=== PATIENT | female | born 1930 | race Caucasian/White ===

== ENCOUNTER → 2016-09-20 | Outpatient (CLI) | payer MEDICARE, OTHER ==
[~2016-09-20] MED LIST: ACETAMINOPHEN1 EACH PO; CARTIA XT240 MG PO; COD LIVER OIL1 EACH PO; COUMADIN **IA1 MG PO; CRESTOR40 MG PO; FOSAMAX70 MG PO; GARLIC1 EAC1 PO; LASIX20 MG PO; MULTI FOR HER1 EAC2 PO; NORCO 5-325 MG1 TAB PO; PROTONIX40 MG PO; REMERON15 MG PO; SEROQUEL25 MG PO; TOPROL XL25 MG PO; TUMS200 MG PO; VITAMIN B-121000 MCG PO; VITAMIN C500 M1 PO; VITAMIN D-32000 UNI1 PO
[2016-09-20 14:06] LABS: ANION GAP 11.6 (10.0-19.0); CALCIUM 9.7 mg/dL (8.5-10.5); CREATININE 1.7 mg/dL (0.5-1.1); POTASSIUM 3.6 mMol/L (3.7-5.1); TOTAL PROTEIN 7.3 g/dL (6.0-8.4)
[2016-09-20 14:07] LABS: TOTAL BILIRUBIN 0.8 mg/dL (0.0-1.5)
== END | disposition disaster alternative care site (69) ==
LOC: LNHI 13:48
PROVIDERS: Internal Medicine Interventional Cardiology
DX: I50.32 Chronic diastolic (congestive) heart failure (principal); I48.92 Unspecified atrial flutter

== ENCOUNTER → 2016-12-10 | Outpatient (CLI) | payer MEDICARE, OTHER | END | disposition disaster alternative care site (69) | LOC: LGSMG 10:49 | DX: I50.30 Unspecified diastolic (congestive) heart failure (principal) ==

== ENCOUNTER → 2017-01-07 | Outpatient (CLI) | payer MEDICARE, OTHER | END | disposition disaster alternative care site (69) | LOC: GBCOE 13:26 | DX: M81.0 Age-related osteoporosis without current pathological fracture (principal) ==

== ENCOUNTER 2017-02-09 14:37 | Emergency (ER) | payer MEDICARE, OTHER ==
--- NOTE | ~2017-02-09 | ER ---
PATIENT'S NAME: YARELY CALLAWAY [facility] AGE: 86 Y [address] ROOM: [place] [address] LOCATION: [facility] ADMIT DATE: 02/09/2017 ER/Outpatient Report DISCHARGE DATE: 02/09/2017 FAMILY PHYSICIAN: Anny Burgos MD ATTENDING PHYSICIAN: Joe Nicholson Time of Arrival: 1440 hours. Time of Evaluation/Exam: 1440 hours. CHIEF COMPLAINT: Chest pain and abdominal pain. HISTORY OF PRESENT ILLNESS: The patient woke up at 1030 hours this morning. Did not really feel the best. She did go to lay back down, and then about 1230 hours, she still was not feeling well. States she has some generalized chest discomfort, has been nauseated, and vomited upon arrival to the ER. She denies feeling shortness of breath or diaphoretic. Upon arrival to the ER, she states she is not having any chest pain anymore. It was earlier today. CURRENT MEDICATIONS: On her chart and reviewed by me. ALLERGIES: ON HER CHART AND REVIEWED BY ME. PAST MEDICAL HISTORY: 1. Atrial fibrillation. 2. Mitral valve insufficiency. 3. Dementia. 4. Congestive heart failure. 5. Chronic kidney disease. 6. Pulmonary hypertension. PAST SURGICAL HISTORY: Pacemaker. SOCIAL HISTORY: She presents to the ER accompanied by her daughter whom she lives with. Denies use of tobacco, drugs, or alcohol. REVIEW OF SYSTEMS: Negative other than those mentioned in the HPI. PHYSICAL EXAMINATION: PATIENT'S NAME: YARELY CALLAWAY [facility] AGE: 86 Y [address] ROOM: [place] [id number] LOCATION: [facility] ADMIT DATE: 02/09/2017 ER/Outpatient Report DISCHARGE DATE: 02/09/2017 FAMILY PHYSICIAN: Anny Burgos MD ATTENDING PHYSICIAN: Joe Nicholson VITAL SIGNS: She weighed 74 kg. Blood pressure is 132/79; pulse is 70; respirations 20; temperature of 96.3, tympanic; and O2 saturation is 93% on room air. GENERAL APPEARANCE: She is awake, alert, and oriented x4. SKIN: Pale, pink, warm, and dry. RESPIRATORY: Respirations are even and nonlabored. Lung sounds are clear throughout. ABDOMEN: Soft, nondistended. Bowel sounds are present. No peripheral edema is noted. EXTREMITIES: She moves all peripheral extremities equally. LABORATORY DATA AND IMAGING STUDIES: EKG was completed. It shows a sinus rhythm. Paced rhythm. It was reviewed with Dr. Nicholson. He did compare it to other EKGs, does not show big changes. CBC shows a white count of 12.1. Prothrombin time is 23.7 with an INR of 2.24. She is on warfarin. Chemistry panel: Sodium is 141, potassium is 4.3, and chloride is 110. Her glucose is 143. BUN is 18, creatinine 1.4. EGFR is 34. Cardiac enzymes are negative. Lactate was 2.4. Her GGT was 55. Procalcitonin was negative. EMERGENCY DEPARTMENT COURSE: The patient was started on fluids of normal saline 500 mL at a wide-open rate. A catheterized UA was obtained. Leukocytes are negative, but nitrites are positive. Micro shows negative epithelials, 0-2 whites, and many bacteria. She was monitored. She was given Zofran 4 mg IV. No more episodes of vomiting occurred during her stay. Vital signs remained stable. Her O2 sats remained above 90% in the entire time. Blood pressure was stable. Heart rate remained at 70, paced rhythm the entire time. She states she was feeling better. Dr. Nicholson did examine the patient also and notes were reviewed with him. Did do a 2-hour EKG and cardiac enzymes. Cardiac enzymes continued to be negative. EKG was unchanged. The patient was given Rocephin 1 g IV. IMPRESSION: Urinary tract infection. PLAN: Home, rest, fluids, and Tylenol as needed for discomfort. Prescription was given for Macrobid. She is to follow up with her primary provider in the next 2 to 3 days, if symptoms warrant. She verbalized understanding. MARINA SOLITARIO APRN FOR JOE NICHOLSON MD PATIENT'S NAME: YARELY CALLAWAY [facility] AGE: 86 Y [address] ROOM: [place] [address] LOCATION: [facility] ADMIT DATE: 02/09/2017 ER/Outpatient Report DISCHARGE DATE: 02/09/2017 FAMILY PHYSICIAN: Anny Burgos MD ATTENDING PHYSICIAN: Joe Nicholson/arnaldol /[id number] d: 02/09/17 2203 t: 02/18/17 0632, OUTPATIENT REPORT
[2017-02-09 15:22] LABS: BASOPHIL % 0.3 %; EOSINOPHIL # 0.1 K/uL (0.0-0.5); EOSINOPHIL % 0.5 %; HEMATOCRIT 41.2 % (30.0-46.0); HEMOGLOBIN 13.2 g/dL (10.0-15.0); IMMATURE GRANULOCYTE % 0.3 %; LYMPHOCYTE # 1.1 K/uL (0.8-4.0); LYMPHOCYTE % 8.8 %; MCV 96.7 fl (83.0-98.0); MONOCYTE # 0.5 K/uL (0.0-1.0); MONOCYTE % 4.2 %; MPV 9.7 fl (9.4-12.4); NEUTROPHIL # (ANC) 10.4 K/uL (1.8-7.8); NEUTROPHIL % 85.9 %; NRBC % 0 /100WBC (0-0.00); PLATELET COUNT 194 K/uL (150-450); RBC 4.26 M/uL (3.00-5.00); RDW-CV 13.9 % (11.9-14.6); WBC 12.1 K/uL (4.0-11.0)
[2017-02-09 15:29] LABS: INR - (THERAPEUTIC) 2.24 (0.92-1.07); PROTIME 23.7 SECONDS (9.8-11.4); PTT 35 SECONDS (25-32)
[2017-02-09 15:41] LABS: ALBUMIN 3.7 gm/dL (3.5-5.0); ALK PHOS 68 IU/L (33-138); ALT 40 IU/L (12-78); ANION GAP 12.3 (10.0-19.0); AST 55 IU/L (10-40); BLOOD UREA NITROGEN 18 mg/dL (6-24); CALCIUM 8.9 mg/dL (8.5-10.5); CHLORIDE 110 mMol/L (96-110); CO2 23 mMol/L (22-32); CPK 49 IU/L (21-215); CREATININE 1.4 mg/dL (0.5-1.1); MAGNESIUM 2.4 mg/dL (1.8-2.6); POTASSIUM 4.3 mMol/L (3.7-5.1); SODIUM 141 mMol/L (135-145); TOTAL BILIRUBIN 1.4 mg/dL (0.0-1.5); TOTAL PROTEIN 6.9 g/dL (6.0-8.4)
[2017-02-09 16:56] LABS: BILIRUBIN URINE NEGATIVE (NEGATIVE); BLOOD URINE 25 /UL (NEGATIVE); COLOR URINE YELLOW (YELLOW); GLUCOSE URINE NEGATIVE (NEGATIVE); KETONE URINE NEGATIVE (NEGATIVE); LEUKOCYTES URINE NEGATIVE /UL (NEGATIVE); NITRITE URINE POSITIVE (NEGATIVE); PROTEIN URINE 100 mg/dL (NEGATIVE); TURBIDITY URINE 2+ (CLEAR); UROBILINOGEN URINE 4 mg/dL (NORMAL)
[2017-02-09 17:22] LABS: BACTERIA URINE MANY (NEGATIVE); EPITHELIAL URINE NEGATIVE #/HPF (NEGATIVE); RBC URINE 0-2 #/HPF (NEGATIVE); WBC URINE 0-2 #/HPF (NEGATIVE)
[2017-02-09 17:37] LABS: CPK 60 IU/L (21-215)
== END 2017-02-09 18:16 | disposition disaster alternative care site (69) ==
LOC: GMED 14:37
PROVIDERS: Emergency Medicine
DX: N39.0 Urinary tract infection, site not specified (principal); I48.91 Unspecified atrial fibrillation; I34.0 Nonrheumatic mitral (valve) insufficiency; F03.90 Unspecified dementia, unspecified severity, without behavioral disturbance, psychotic disturbance, mood disturbance, and anxiety; I13.0 Hypertensive heart and chronic kidney disease with heart failure and stage 1 through stage 4 chronic kidney disease, or unspecified chronic kidney disease; I50.9 Heart failure, unspecified; N18.9 Chronic kidney disease, unspecified; Z95.0 Presence of cardiac pacemaker; Z88.8 Allergy status to other drugs, medicaments and biological substances; Z79.899 Other long term (current) drug therapy; Z79.01 Long term (current) use of anticoagulants
CPT/HCPCS: J0696; J2405; J7040